=== PATIENT | female | born 1975 | race Caucasian/White ===

== ENCOUNTER 2018-01-21 08:13 | Emergency (ER) | payer BC, OTHER ==
[~2018-01-21] VITALS: Ht 167.6 cm; Wt 149.7 kg
[~2018-01-21 08:13] MED LIST: DIVA500T PO
--- NOTE | 2018-01-21 08:38 | ED General ---
General Chief Complaint: Back Problems Stated Complaint: MUSCLES SPASMS IN BACK Nursing Triage Note: c/o worsening back pain and spasms. Symptoms have been sporadic since Sunday but worse last night. Hx of fall 5 weeks ago. Nursing Sepsis Screen: No Definite Risk Source of Information: Patient Exam Limitations: No Limitations History of Present Illness Date Seen by Provider: Jan 21, 2018 Time Seen by Provider: 08:15 Initial Comments This 42 year old woman presents to the ER with complaints of muscle spasms in her right upper and radiating around to her right lateral chest wall. She also has exacerbation of chronic lower back pain. She believes the symptoms are triggered by bronchitis and cough as well as a fall she had on ice about 5 weeks ago. She has been taking naproxen and Tylenol. She also has sinus congestion and postnasal drip which contributes to her cough and wheezing. She denies any smoking. She has been afebrile. She reports frequent problems with bronchitis and sinus issues. She denies any urinary symptoms. She occasionally has radicular symptoms in her legs which are unchanged. Allergies and Home Medications Allergies Coded Allergies: No Known Drug Allergies (Unverified , 10/01/12) Home Medications Albuterol Sulfate 1 Puff Puff, 1-4 PUFF IH Q4H PRN for WHEEZING 1 PUFF = 90 MCG Prescribed by: ARAM ZELAYA on 01/21/18838 Cyclobenzaprine HCl 10 Mg Tablet, 10 MG PO TID PRN for SPASMS Prescribed by: ARAM ZELAYA on 01/21/18838 Divalproex Sodium 500 Mg Tablet.dr, 500 MG PO BID, (Reported) Prednisone 20 Mg Tab, 40 MG PO DAILY Prescribed by: ARAM ZELAYA on 01/21/18838 Patient Home Medication List Home Medication List Reviewed: Yes Constitutional: no symptoms reported EENTM: see HPI Respiratory: see HPI Cardiovascular: no symptoms reported Gastrointestinal: no symptoms reported Genitourinary: no symptoms reported : No LMP: Jan 07, 2018 Musculoskeletal: see HPI Skin: no symptoms reported Psychiatric/Neurological: See HPI Hematologic/Lymphatic: No Symptoms Reported Immunological/Allergic: no symptoms reported Past Mbnzkzz-Cgtpli-Bnzjpj Hx Patient Social History Alcohol Use: Occasionally Uses Recreational Drug Use: No Smoking Status: Never a Smoker Recent Foreign Travel: No Contact w/Someone Who Travel: No Recent Infectious Disease Expo: No Immunizations Up To Date Date of Influenza Vaccine: Aug 12, 2012 Surgeries History of Surgeries: Yes (carpal tunnel) Surgeries: Gallbladder, Orthopedic Respiratory History of Respiratory Disorde: No Cardiovascular History of Cardiac Disorders: Yes (MVP) Neurological History of Neurological Disord: No Reproductive System : No Last Menstrual Period: Jan 07, 2018 Hx Reproductive Disorders: No Female Reproductive Disorders: Polycystic Ovarian Dis Genitourinary History of Genitourinary Disor: No Gastrointestinal History of Gastrointestinal Di: No Musculoskeletal History of Musculoskeletal Dis: Yes Musculoskeletal Disorders: Chronic Back Pain (with radiculopathy from disc disease) Endocrine History of Endocrine Disorders: Yes (obesity) HEENT History of HEENT Disorders: No Cancer History of Cancer: No Psychosocial History of Psychiatric Problem: No Blood Transfusions History of Blood Disorders: No Physical Exam Vital Signs Vital Signs - First Documented 01/21/18 01/21/18 08:24 08:55 Temp 98.4 Pulse 82 Resp 16 B/P (MAP) 136/93 (107) Pulse Ox 98 O2 Delivery Room Air Capillary Refill : Less Than 3 Seconds General Appearance: No Apparent Distress, WD/WN, Obese HEENT: PERRL/EOMI, TMs Normal, Normal ENT Inspection, Pharynx Normal Neck: Normal Inspection Respiratory: No Accessory Muscle Use, No Respiratory Distress, Decreased Breath Sounds, Wheezing, Other (right posterior and lateral chest wall tender to palpation) Cardiovascular: Regular Rate, Rhythm, No Murmur Back: Other (tenderness in the paraspinous muscles and the right posterior and lateral chest wall) Extremity: Normal Inspection Neurologic/Psychiatric: Alert, Oriented x3, No Motor/Sensory Deficits, Normal Mood/Affect, inner layer scrubber tender II-XII Norm as Tested Skin: Normal Color, Warm/Dry, No Rash Progress/Results/Core Measures Suspected Sepsis Recent Fever Within 48 Hours: No Infection Criteria Present: Suspected New Infection New/Unexplained Altered Menta: No Sepsis Screen: No Definite Risk Sepsis Diagnosis: SIRS Temperature:98.4 Pulse: 82 Respiratory Rate: 16 Blood Pressure 136 /93 Mean: 107 Results/Orders My Orders Orders - ARAM WATSON MD Ketorolac Injection (Toradol Injection) (01/21/18 08:45) Orphenadrine Injection (Norflex Injectio (01/21/18 08:45) Medications Given in ED Current Medications Medications Dose Ordered Sig/Julian Route Start Time Stop Time Status Last Admin Dose Admin Ketorolac Tromethamine 30 mg ONCE ONCE IM 01/21/18 08:45 01/21/18 08:46 DC 01/21/18 08:37 30 MG Orphenadrine Citrate 60 mg ONCE ONCE IM 01/21/18 08:45 01/21/18 08:46 DC 01/21/18 08:38 60 MG Vital Signs/I&O Vital Sign - Last 12Hours 01/21/18 01/21/18 01/21/18 08:24 08:37 08:55 Temp 98.4 98.4 98.4 Pulse 82 78 Resp 16 16 B/P (MAP) 136/93 (107) 132/90 (107) Pulse Ox 98 O2 Delivery Room Air Capillary Refill : Less Than 3 Seconds Blood Pressure Mean: 107 Progress Note : Progress Note Patient was treated with injections of Toradol and Norflex. Discharge instructions were discussed. Departure Impression Impression: Primary Impression: Acute bronchitis Qualified Codes: J20.9 - Acute bronchitis, unspecified Additional Impressions: Chest wall pain Muscle spasm of back Postnasal drip Disposition: 01 HOME, SELF-CARE Condition: Improved Departure-Patient Inst. Decision time for Depature: 08:33 Referrals: EVERETTE SALGUERO DO (PCP/Family) Primary Care Physician Patient Instructions: Acute Bronchitis in Adults Add. Discharge Instructions: For your back and chest wall pain you may continue doing nonpharmacologic therapies such as gentle heat and manipulation therapy. You may continue using Aleve (naproxen) up to 500 mg twice daily. You may also add Tylenol ( acetaminophen) up to 1000 mg every 6 hours as needed for additional pain relief. Continue to work on lifestyle changes such as weight loss and exercise to reduce strain on your back. For your bronchitis use your inhaler as prescribed. You may use up to 4 puffs in a four-hour period of time. I also suggest using Flonase daily as a sinus maintenance medication. This should reduce your recurrence of bronchitis, coughing, postnasal drip, and congestion. Follow-up with Dr. Salguero within the next1-2 weeks. Return to care more promptly if symptoms are worsening. Complete your prednisone prescription as prescribed. Take your doses early in the day with food or milk. Use your muscle relaxer (cyclobenzaprine) as needed for muscle spasms. Please be aware cyclobenzaprine may make you drowsy. All discharge instructions reviewed with patient and/or family. Voiced understanding. Scripts Cyclobenzaprine HCl (Cyclobenzaprine HCl) 10 Mg Tablet 10 MG PO TID Y for SPASMS, #15 TAB Prov: ARAM WATSON MD 01/21/18 Prednisone (Prednisone) 20 Mg Tab 40 MG PO DAILY, #8 TAB Prov: ARAM WATSON MD 01/21/18 Albuterol Sulfate (PROAIR HFA) 1 Puff Puff 1-4 PUFF IH Q4H Y for WHEEZING, #1 PUFF 1 PUFF = 90 MCG Prov: ARAM WATSON MD 01/21/18 Copy Copies To 1: EVERETTE SALGUERO JOSHUA T MD Jan 21, 2018 08:38
[2018-01-21] MEDS ORDERED: RT-ALBUINH IH (08:39)
[2018-01-21] MEDS ORDERED: PRD20T PO (08:39)
[2018-01-21] MEDS ORDERED: CYCL10TA9 PO (08:39)
[2018-01-21] MEDS ORDERED: KETOROLAC 30 MG/ML VIAL IM ONE (08:45)
[2018-01-21] MEDS ORDERED: ORPHENADRINE 60 MG/2 ML (NORFLEX) AMP IM ONE (08:45)
[2018-01-21 08:55] VITALS: BP 132/90
--- OUTSIDE RECORDS SUMMARY | 2018-01-21 10:53 | XMS REPORT | Continuity of Care Document ---
Author Author [facility] Address Unknown Phone Unavailable Allergies There is no data. Medications There is no data. 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 03/23/2009 LEONARD MCLAIN APRNIDI A 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 08/19/2013 ELLA METZ DO 256.4 POLYCYSTIC OVARIES 08/19/2013 ELLA METZ DO 278.01 MORBID OBESITY 08/19/2013 ELLA METZ DO V25.01 CONTRACEPTION - ORAL CONTRACEPTION 08/19/2013 ELLA METZ DO V73.81 HPV SCREENING 08/19/2013 ELLA METZ DO V76.10 BREAST CANCER SCREENING 08/19/2013 ELLA METZ DO V76.2 CERVICAL CANCER SCREENING (PAP SMEAR) 08/19/2013 STEPHY MCLAIN APRN A 256.4 POLYCYSTIC OVARIES 08/19/2013 RAYNE TITUS STEPHY A 278.01 MORBID OBESITY 08/19/2013 RAYNE LEONARD QURESHIIDI A V25.01 CONTRACEPTION - ORAL CONTRACEPTION 08/19/2013 RAYNE FILLING AND PACKING SUPERVISOR, STEPHY A V73.81 HPV SCREENING 08/19/2013 STEPHY MCLAIN APRN V76.10 BREAST CANCER SCREENING 08/19/2013 STEPHY MCLAIN APRN V76.2 CERVICAL CANCER SCREENING (PAP SMEAR) Procedures Code Description [place] [address] ROUTINE VENIPUNCTURE 08/21/2013 08019 PAP SMEAR 08/21/2013 Q0091 PAP SMEAR OBTAIN SMEAR 08/21/2013 37676 CBC 08/21/2013 05259 CMP 08/21/2013 01705 LIPID PANEL 08/21/2013 [id number] GFR CALC (RESULT ONLY) 08/21/2013 62640 TSH 08/21/2013 38696 INSULIN LEVEL 08/21/2013 14941 A1C (RML) 08/21/2013 70796 TESTOSTERONE-WOMEN & CHILDREN 08/26/2013 Results There is no data. Encounters ACCT No. Visit Date/Time Discharge Status Pt. Type Provider Facility Loc./Unit Complaint [id number] 12/25/2013 09:58:00 12/25/2013 23:59:59 CLS Outpatient STEPHY MCLAIN APRN [id number] 08/21/2013 11:46:00 08/21/2013 23:59:59 CLS Outpatient ELLA METZ DO
== END 2018-01-21 08:55 | disposition home or self-care (01) ==
LOC: EDUNIT# 08:13 → ER 08:15
DX: J21.9 Acute bronchiolitis, unspecified (principal); R07.89 Other chest pain; M62.830 Muscle spasm of back; R09.82 Postnasal drip; E66.9 Obesity, unspecified; Z87.42 Personal history of other diseases of the female genital tract; Z79.52 Long term (current) use of systemic steroids; Z68.43 Body mass index [BMI] 50.0-59.9, adult
CPT/HCPCS: 96372; 99284

== ENCOUNTER → 2019-03-28 | Outpatient (CLI) | payer BC ==
[~2019-03-28] MED LIST changes: +CYCL10TA9 PO; +PRD20T PO; +RT-ALBUINH IH
--- NOTE | 2019-03-28 11:49 | Diagnostic Imaging Report ---
PROCEDURE: US Non-ob pelvis comp/trans. TECHNIQUE: Multiple realtime grayscale images were obtained of the pelvis in various projections endovaginally. Transabdominal imaging was also performed. INDICATION: Dysmenorrhea with polycystic ovarian syndrome and excessive menstruation. FINDINGS: The uterus measures 7.0 x 3.3 x 3.1 cm. Endometrium is 3 mm in thickness. No myometrial mass is identified. There is a small nabothian cyst. Small cysts adjacent to the endometrium are noted. The ovaries cannot be visualized due to patient body habitus and bowel gas. No adnexal mass or free fluid is seen. IMPRESSION: 1. Nonvisualized ovaries. 2. Normal thickness to the endometrium. There are small endometrial cysts present. No other significant abnormality is seen. Dictated by: Dictated on workstation # [id number]
== END ==
LOC: RAD 10:15
PROVIDERS: ATTEND Nurse Practitioner
DX: N85.8 Other specified noninflammatory disorders of uterus (principal); N94.4 Primary dysmenorrhea; N94.5 Secondary dysmenorrhea; N92.0 Excessive and frequent menstruation with regular cycle; E28.2 Polycystic ovarian syndrome
CPT/HCPCS: 76830; 76856

== ENCOUNTER → 2021-08-29 | Outpatient (CLI) | payer BC ==
--- NOTE | 2021-08-29 18:16 | Diagnostic Imaging Report ---
EXAM: Digital mammogram, bilateral screening. COMPARISON: There are no previous exams available for comparison. At this time, there are no current complaints. FINDINGS: The fibroglandular tissue in both breasts is heterogeneously dense. This does limit the sensitivity of this exam. There is no primary or secondary sign of malignancy noted. IMPRESSION: 1. There is no evidence of malignancy. 2. The patient should have her annual bilateral screening mammogram on schedule in August of 2022. ACR category 1 ACR BI-RADS Category 1: Negative. Result letter will be mailed to the patient. Note: At least 10% of breast cancer is not imaged by mammography. Dictated by: Dictated on workstation # [id number]
== END ==
LOC: RAD 10:36
PROVIDERS: ATTEND Internal Medicine
DX: Z12.31 Encounter for screening mammogram for malignant neoplasm of breast (principal)
CPT/HCPCS: 77063; 77067

== ENCOUNTER 2022-06-21 05:31 | Outpatient (CLI) | payer BC ==
[~2022-06-21] VITALS: Ht 160 cm; Wt 150.0 kg
[~2022-06-21 05:31] MED LIST changes: +CYCL10TA25 PO; -CYCL10TA9 PO
[2022-06-26] MEDS ORDERED: NALT1TAB PO ×2 (08:43)
== END 2022-06-26 08:44 | disposition home or self-care (01) ==
LOC: PREOP 05:31
PROVIDERS: ATTEND Orthopaedic Surgery
DX: Z01.818 Encounter for other preprocedural examination (principal); S83.281A Other tear of lateral meniscus, current injury, right knee, initial encounter; S83.241A Other tear of medial meniscus, current injury, right knee, initial encounter; X58.XXXA Exposure to other specified factors, initial encounter

== ENCOUNTER 2022-06-28 08:11 | Day surgery (SDC) | payer BC ==
--- NOTE | 2022-06-20 20:39 | HISTORY AND PHYSICAL ---
DATE OF SERVICE: This will be for outpatient surgery on 06/28/2022 for right knee arthroscopy. HISTORY OF PRESENT ILLNESS: The patient is a 47-year-old female with complaints of right knee pain. She reports locking and catching in her knee. She reports that she has had manipulator knee to unlock it. She has undergone treatment with injections with only temporary relief of her symptoms. She does have a history of back problems and paresthesias, but reports swelling, catching and locking of the knee itself and not affecting her back. Due to functional impairment and failure to improve with conservative measures, the patient has elected to proceed with surgical intervention. PRIMARY CARE PROVIDER: Dr. Salguero. REVIEW OF SYSTEMS: No chest pain, no shortness of breath, no dysuria. PAST MEDICAL HISTORY: Polycystic ovarian syndrome, bipolar, anemia, depression, asthma, valvular heart disease, endometriosis. PAST SURGICAL HISTORY: Exploratory laparoscopy, , cholecystectomy, wisdom tooth extraction, right carpal tunnel and hysterectomy. FAMILY HISTORY: Significant for hypertension, colon polyps, cardiovascular disease, diabetes. MEDICATIONS: Contrave. ALLERGIES: NO KNOWN DRUG ALLERGIES. SOCIAL HISTORY: The patient denies tobacco use and drinks alcohol rarely. PHYSICAL EXAMINATION: GENERAL: The patient is well-developed, well-nourished, in no acute distress. HEENT: Normocephalic, atraumatic. Pupils are equal, round and reactive to light. Oropharynx is clear. NECK: Supple, no lymphadenopathy. LUNGS: Clear to auscultation bilaterally. HEART: Regular rate and rhythm. ABDOMEN: Soft, nontender, nondistended. EXTREMITIES: The right knee demonstrates large effusion. She is tender along the medial joint line. She has pain medially with Thierno's. She has patellofemoral crepitus and pain with patellar loading. Range of motion is 0/2/120. There is no varus valgus laxity. Negative anterior and posterior drawer. She underwent an MRI, which revealed chondromalacia of all three compartments as well as lateral meniscus tear. The patient is a poor candidate for total knee arthroplasty due to her size and her age. She has failed injections as well as home exercise program. She has elected to proceed with arthroscopy with loose body removal, chondroplasty and partial meniscectomy. She understands this can help with her mechanical symptoms but will not alleviate her arthritic symptoms. PLAN: We discussed risks, benefits, options, ramifications and recovery at length. She understands and wishes to proceed. Job ID: [id number] DocumentID: [id number] Dictated Date: 06/12/2022 14:00:12 Mobile Designer Date: 06/12/2022 14:35:51 Dictated By: YONATHAN WATSON MD
[2022-06-28] VITALS (11 sets, daily range): BP systolic 124–156; BP diastolic 71–93
[~2022-06-28] VITALS: Ht 160 cm; Wt 150.0 kg
[~2022-06-28 08:11] MED LIST changes: +HYDROcodone/APAP 7.5 MG/325 MG (LORTAB, LORCET PLUS) TABLET PO PRN; +NALT1TAB PO
[2022-06-28] MEDS ORDERED: morphine PF (DURAMORPH) 10 MG/10 ML AMP ONE (08:48)
[2022-06-28] MEDS ORDERED: BUPIVACAINE 0.25% 30 ML (SENSORCAINE) VIAL ONE (08:48)
[2022-06-28] MEDS ORDERED: LACTATED RINGERS 1,000 ML IV PRN (09:00)
[2022-06-28] MEDS ORDERED: ceFAZolin 2 GM IV Premixed 50 ML IV ONE (09:00)
[2022-06-28] MEDS ORDERED: ceFAZolin 2 GM IV Premixed 50 ML ONE (09:10)
--- NOTE | 2022-06-28 09:20 | Progress Note-Pre Operative ---
Pre-Operative Progress Note Date of Available H&P: Jun 28, 2022 Date H&P Reviewed: Jun 28, 2022 Time H&P Reviewed: 07:11 Changes from last HP none Pre-Operative Diagnosis: right medial and lateral meniscus tears and chondromalacia YONATHAN WATSON MD Jun 28, 2022 09:19
--- NOTE | 2022-06-28 09:21 | Progress Note-Post Operative ---
Post-Operative Progess Note Surgeon (s)/Zipper Lining Folder (s) Surgeon YONATHAN WATSON MD Zipper Lining Folder: Farhat Braswell Pre-Operative Diagnosis right medial and lateral meniscus tears and chondromalacia Post-Operative Diagnosis right medial and lateral meniscus tears and chondromalacia of the medial and lateral femoral condyles and trochlea Procedure & Operative Findings Date of Procedure 06/28/22 Procedure Performed/Findings right knee arthroscopic partial medial and lateral meniscectomies and chondroplasty of the medial and lateral femoral condyles and trochlea Anesthesia Type GETA Estimated Blood Loss Estimated blood loss (mL): minimal Specimens/Packing Specimens Removed none Packing: none YONATHAN WATSON MD Jun 28, 2022 09:20
[2022-06-28] MEDS ORDERED: fentaNYL INJ 100 MCG/2 ML AMP ONE (09:31)
[2022-06-28] MEDS ORDERED: MIDAZOLAM 2 MG/2 ML (VERSED) VIAL ONE (09:31)
[2022-06-28] MEDS ORDERED: proPOfol 200 MG/20 ML (DIPRIVAN) VIAL IV ONE (09:51)
[2022-06-28] MEDS ORDERED: LIDOCAINE PF 2% 5 ML (XYLOCAINE) VIAL ONE (09:51)
[2022-06-28] MEDS ORDERED: SEVOFLURANE (ULTANE) 15 ML INHAL SOLN ONE (09:51)
[2022-06-28] MEDS ORDERED: ONDANSETRON 4 MG/2 ML (SDV) Z0FRAN ONE (09:51)
--- NOTE | 2022-06-28 10:10 | Anesthesia-General Post-Op ---
General Patient Condition Mental Status/LOC: Same as Preop Cardiovascular: Satisfactory Nausea/Vomiting: Absent Respiratory: Satisfactory Pain: Controlled Complications: Absent Post Op Complications Complications None Follow Up Care/Instructions Patient Instructions None needed. Anesthesia/Patient Condition Patient Condition Patient is doing well, no complaints, stable vital signs, no apparent adverse anesthesia problems. No complications reported per nursing. ROSIE RABAGO CRNA Jun 28, 2022 10:10
[2022-06-28] MEDS ORDERED: ONDANSETRON 4 MG/2 ML (SDV) Z0FRAN IVP PRN (10:15)
[2022-06-28] MEDS ORDERED: HYDROmorphone 2 MG/ML VIAL (DILAUDID) IV ONE (10:15)
[2022-06-28] MEDS ORDERED: morphine INJ 10 MG/ML 1ML (SYR OR VIAL) IVP ONE (10:15)
[2022-06-28] MEDS ORDERED: MEPERIDINE (DEMEROL) INJ 50 MG/ML IVP ONE (10:15)
[2022-06-28] MEDS ORDERED: morphine INJ 10 MG/ML 1ML (SYR OR VIAL) ONE (10:15)
[2022-06-28] MEDS ORDERED: fentaNYL INJ 100 MCG/2 ML AMP IVP ONE (10:15)
[2022-06-28] MEDS ORDERED: PROMETHAZINE INJ 25 MG/ML (PHENERGAN) AMP IVP ONE (10:15)
[2022-06-28] MEDS ORDERED: PROMETHAZINE INJ 25 MG/ML (PHENERGAN) AMP ONE (10:24)
[2022-06-28] MEDS ORDERED: MEPERIDINE (DEMEROL) INJ 50 MG/ML ONE (10:29)
--- NOTE | 2022-06-28 12:50 | Physical Therapy Ortho Eval ---
PT Orthopedic Evaluation Type of Surgery Knee Scope right side Prior Level of Function Current Living Status: Significant Other Locomotion (Upon Admit): Independent Established Durable Medical Eq: Front Wheeled Walker Subjective Subjective Patient in bed pre tx, agrees to PT, has no complaints of pain at rest. Steps Into Home: 1 Motor Control Motor Control: Motor Control WNL ROM right knee extension +5 degrees, flexion 70 degrees Transfer SCALE: Activities may be completed with or without assistive devices. 4-Ocsrespdpv-nkvsnhz completes the activity by him/herself with no assistance from a helper. 5-Set-up or Clean-up Assistance-helper sets up or cleans up; patient completes activity. [place] assists only prior to or following the activity. 4-Supervision or Touching Assistance-helper provides verbal cues and/or touching/steadying and/or contact guard assistance as patient completes activity. Assistance may be provided throughout the activity or intermittently. 3-Partial/Moderate Assistance-helper does LESS THAN HALF the effort. [place] lifts, holds or supports trunk or limbs, but provides less than half the effort. 2-Substantial/Maximal Assistance-helper does MORE THAN HALF the effort. [place] lifts or holds trunk or limbs and provides more than half the effort. 0-[place]-wsxwdo does ALL the effort. Patient does none of the effort to complete the activity. Or, the assistance of 2 or more helpers is required for the patient to complete the activity. If activity was not attempted, code reason: 7-Patient Refused. 9-Not Applicable-not attempted and the patient did not perform the activity before the current illness, exacerbation or injury. 10-Not Attempted due to Environmental Limitations-(lack of equipment, weather restraints, etc.). 88-Not Attempted due to Medical Conditions or Safety Concerns. Transfers (B, C, W/C) (QC): 4 Gait Summary/Comments Patient ambulated 100' with a rolling walker with SBA, she also went up and down 1 steps using a rolling walker with SBA and cues for foot placement Treatment Rendered Treatment: Therapeutic Exercises, Gait Train, Step Train Exercise Instruction: Quad Sets, Heel Slides, Ankle Pumps Assessment/Goals Goal Time Frame: 1 Visit Understands HEP: Yes Safe Ambulation: Yes Plan Treatment Plan: Discharge PT/Family Agrees to Plan: Yes Time Time In: 1150 Time Out: 1200 Total Billed Treatment Time: 10 Billed Treatment Time 1 visit EVL 10' KRTEK,TYLER PT Jun 28, 2022 12:50
--- NOTE | 2022-06-28 14:42 | OPERATIVE REPORT ---
DATE OF SERVICE: 06/28/2022 PREOPERATIVE DIAGNOSES: 1. Right knee medial meniscus tear. 2. Right knee lateral meniscus tear. 3. Right knee chondromalacia of the medial femoral condyle. 4. Right knee chondromalacia of lateral femoral condyle. POSTOPERATIVE DIAGNOSES: 1. Right knee medial meniscus tear. 2. Right knee lateral meniscus tear. 3. Right knee chondromalacia of the medial femoral condyle. 4. Right knee chondromalacia of lateral femoral condyle. 5. Right knee chondromalacia of the trochlea. PROCEDURES: 1. Right knee arthroscopic partial medial meniscectomy. 2. Right knee arthroscopic partial lateral meniscectomy. 3. Right knee arthroscopic chondroplasty of the medial femoral condyle. 4. Right knee arthroscopic chondroplasty of the lateral femoral condyle. 5. Right knee arthroscopic chondroplasty of the trochlea. SURGEON: Puma Watson MD FUND CONTROLLER: Farhat Stewart, who assisted throughout the procedure and closed the incisions. ANESTHESIA: General endotracheal by Ramon Wooten CRNA. DRAINS: None. COMPLICATIONS: None. ESTIMATED BLOOD LOSS: Minimal. POSTOPERATIVE PLAN: Routine arthroscopy protocol. The patient was transferred to the recovery room awake and stable condition. STATEMENT OF MEDICAL NECESSITY: The patient is a 47-year-old female with longstanding progressive right knee pain, catching, locking and swelling. She has tenderness along the medial and lateral joint lines with large effusion. She tried rest, activity modifications and anti-inflammatories. Due to functional impairment and failure to improve with conservative measures, the patient elected to proceed with surgical intervention. The patient was noted radiographically to have degenerative changes and she understood that arthroscopy would not help with her arthritic symptoms, but could help with her mechanical symptoms. Examination under anesthesia revealed range of motion of 0/0/120 with negative Sergo, negative anterior and posterior drawer. No varus valgus laxity, negative pivot shift. ARTHROSCOPIC FINDINGS: The patella demonstrated grade II chondral loss inferiorly in 10 x 10 area, grade II chondral flaps superiorly in the trochlear groove in a 15 x 10 area. The medial and lateral gutters were clear. The ACL and PCL were intact. The medial compartment demonstrated grade IV chondral loss of the medial aspect of the tibial plateau in an 8 x 8 area. The femoral condyle medially demonstrated a grade III chondral flaps in a 20 x 20 area. In addition, there was a complex tear of the posterior horn and body of medial meniscus involving approximately two-thirds of the posterior horn and body. The lateral compartment demonstrated a grade III chondral flap off the anterior aspect of the femoral condyle in a 15 x 10 area and a body tear of lateral meniscus involving approximately one-third of the body of the lateral meniscus. DESCRIPTION OF PROCEDURE: After risks and benefits of procedure were discussed and questions were answered, informed consent was signed and placed on chart, the operative site was confirmed in the preoperative holding area initialed by the surgeon. The patient was then transferred to the operating room. After adequate levels of general endotracheal anesthetic were obtained, a timeout was called, confirming the operative site. Examination under anesthesia was performed with above findings noted. The right lower extremity was prepped and draped in the usual sterile fashion. The knee joint was injected with 60 mL of fluid and standard inferolateral portal placed with arthroscope. Under direct visualization, inferior medial portal was created. The menisci and cruciates carefully probed, above findings noted. The unstable chondral flaps in the trochlea were debrided with a shaver back to a stable edge. Scope was redirected into the medial compartment and unstable chondral flaps in the medial femoral condyle were debrided with a shaver back to a stable edge and the medial meniscus tear was debrided with a biter and shaver removing approximately two-thirds posterior horn and body. The scope was then redirected into the medial compartment and the unstable chondral flaps on the lateral femoral condyle were debrided with shaver back to a stable edge and the lateral meniscus tear was debrided with a shaver back to a stable edge. Knee was copiously irrigated. Port sites were closed with 4-0 nylon in fashion. Knee was injected with Duramorph. Port sites were infiltrated with plain Marcaine and soft dressing was applied. The patient was transferred to the recovery room awake and in stable condition. Job ID: [id number] DocumentID: [id number] Dictated Date: 06/28/2022 10:14:43 Silk Screen Repairer Date: 06/28/2022 14:41:35 Dictated By: PUMA WATSON MD
== END 2022-06-28 12:20 | disposition home or self-care (01) ==
LOC: SDC 08:11
PROVIDERS: ATTEND Orthopaedic Surgery
DX: M23.203 Derangement of unspecified medial meniscus due to old tear or injury, right knee (principal); M23.200 Derangement of unspecified lateral meniscus due to old tear or injury, right knee; M94.261 Chondromalacia, right knee; E66.01 Morbid (severe) obesity due to excess calories; Z79.899 Other long term (current) drug therapy; Z68.43 Body mass index [BMI] 50.0-59.9, adult
CPT/HCPCS: 87081

== ENCOUNTER → 2023-10-22 | Outpatient (CLI) | payer BC ==
[~2023-10-22] VITALS: Ht 160 cm; Wt 150.0 kg
[~2023-10-22] MED LIST changes: +ALBU8.5H6 IH; -HYDROcodone/APAP 7.5 MG/325 MG (LORTAB, LORCET PLUS) TABLET PO PRN; +LIDOCAINE 1% INJ 10 ML VIAL INJ ONE; -RT-ALBUINH IH
--- NOTE | 2023-10-22 16:30 | Diagnostic Imaging Report ---
INDICATION: Right thyroid nodule. Patient presents for ultrasound-guided fine-needle aspiration. Patient was brought to the procedure room and placed on the table in the supine position. Ultrasound imaging of the neck was performed to evaluate appropriate entry site. The neck was then prepped and draped in the usual sterile fashion. A small amount of 1% lidocaine was utilized for local anesthesia. A total of four passes were made into the circumscribed hypoechoic nodule in the right lobe of the thyroid utilizing 25-gauge needles and fine-needle aspiration technique. Hemostasis was obtained. Patient tolerated the procedure well and left the department in stable condition. IMPRESSION: Successful ultrasound-guided fine-needle aspiration of right thyroid nodule. Pathology results are currently pending. Dictated by: Dictated on workstation # [id number]
== END ==
LOC: RAD 15:09
PROVIDERS: ATTEND Nurse Practitioner Family
DX: E04.1 Nontoxic single thyroid nodule (principal)